=== PATIENT | female | born 1985 ===

== ENCOUNTER 2016-08-24 13:09 | Observation (INO) | payer MEDICARE, MEDICAID ==
--- NOTE | 2016-08-24 14:28 | ED PDOC ---
HPI: Abdomen Chief Complaint (Provider): Abdominal pain History Per: Patient History/Exam Limitations: no limitations Onset/Duration Of Symptoms: Hrs Outside of [place] travel?: No Current Symptoms Are (Timing): Still Present Severity: Moderate Pain Scale Rating Of: 7 Location Of Pain/Discomfort: Diffuse Quality Of Discomfort: Cramping, "Pain" Associated Symptoms: Nausea, Vomiting, Diarrhea. denies: Fever, Chills, Loss Of Appetite, Back Pain, Constipation, Urinary Symptoms Additional History Per: Patient <Katie Marcelouja - Last Filed: 08/24/16 16:57> <Tara Valencia - Last Filed: 08/24/16 19:12> Time Seen by Provider: 08/24/16 13:58 Chief Complaint (Nursing): Abdominal Pain Additional Complaint(s): 31 yo F with c/o abdominal cramping and N/V/D which started this morning. Pt states that today is day #2 of her menses. Reports abdominal cramping that is more severe than what she normally gets with her period. Has felt nauseous and had 2 episodes of clear liquid, nonbilious, nonbloody vomiting and 10-12 episodes of watery, nonbloody diarrhea. Denies fever, chills, recent travel or recent antibiotic use. (Jen Marcelo) Past Medical History Reviewed: Historical Data, Nursing Documentation, Vital Signs - Medical History PMH: No Chronic Diseases - Family History Family History: States: Unknown Family Hx <Katie Marcelouja - Last Filed: 08/24/16 16:57> <Tara Valencia - Last Filed: 08/24/16 19:12> Vital Signs: Last Vital Signs Temp 98.9 F 08/24/16 13:12 Pulse 91 H 08/24/16 19:10 Resp 19 08/24/16 19:10 BP 125/72 08/24/16 13:12 Pulse Ox 100 08/24/16 19:10 - Home Medications Home Medications: Ambulatory Orders Medication Instructions Recorded Ondansetron ODT [Zofran ODT] 4 mg PO Q8 PRN #12 odt 08/24/16 - Allergies Allergies/Adverse Reactions: Allergies Allergy/AdvReac Type Severity Reaction Status Date / Time No Known Allergies Allergy Verified 08/24/16 13:12 Review of Systems Constitutional: Negative for: Fever, Chills Cardiovascular: Negative for: Chest Pain, Palpitations Respiratory: Negative for: Cough, Shortness of Breath Gastrointestinal: Positive for: Nausea, Vomiting, Abdominal Pain, Diarrhea. Negative for: Constipation Genitourinary Female: Negative for: Dysuria, Frequency Neurological: Negative for: Headache, Dizziness <Jen Marcelo - Last Filed: 08/24/16 16:57> Physical Exam - Reviewed Nursing Documentation Reviewed: Yes Vital Signs Reviewed: Yes - Physical Exam Appears: Positive for: No Acute Distress Head Exam: Positive for: NORMAL INSPECTION Skin: Positive for: Normal Color, Warm, Dry Eye Exam: Positive for: Normal appearance, EOMI, PERRL ENT: Positive for: Normal ENT Inspection Cardiovascular/Chest: Positive for: Tachycardia. Negative for: Gallop, Murmur, Friction Rub Respiratory: Positive for: Normal Breath Sounds Gastrointestinal/Abdominal: Positive for: Bowel Sounds (present throughout), Soft, Tenderness (diffuse), Guarding. Negative for: Rebound Back: Negative for: L CVA Tenderness, R CVA Tenderness Extremity: Positive for: Capillary Refill (< 2 sec). 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 HR is 96. Abdomen exam is normal. Probable small left ovarian cysts. Pelvic ultrasound suggested for further evaluation. The appendix is not identified. No secondary signs of acute appendicitis appreciated. Additional incidental findings as above. (Tara Valencia) ED OBSERVATION <Jen Marcelo - Last Filed: 08/24/16 16:57> Date of observation admission: 08/24/16 Time of observation admission: 15:50 <Tara Valencia - Last Filed: 08/24/16 19:12> - Observation admission statement Patient is being placed in observation because:: Abdominal pain (Tara Valencia) - Goals of Observation Goals of observation are:: Evaluate for abdominal pain, CT abdomen. Reevaluate. (Tara Valencia) Disposition - Disposition Disposition Time: 16:59 Patient Signed Over To: Tara Valencia Handoff Comments: CT abd/pelvis pending <Jen Marcelo - Last Filed: 08/24/16 16:57> - Patient ED Disposition Is Patient to be Admitted: No Doctor Will See Patient In The: Office Counseled Patient/Family Regarding: Studies Performed, Diagnosis, Need For Followup - Disposition Disposition: Routine/Home Disposition Time: 19:10 <Tara Valencia - Last Filed: 08/24/16 19:12> - Clinical Impression Clinical Impression: Abdominal pain, Vomiting and diarrhea - Disposition Condition: GOOD
[2016-08-24] MEDS ORDERED: Sodium Chloride 0.9% 1,000 ML IV SCH (14:30)
[2016-08-24 14:52] LABS: BASO % 0.1 % (0.0-2.0); HEMATOCRIT 42.7 % (34.0-47.0); LYMPH # 0.3 K/uL (1.0-4.3); LYMPH % 1.3 % (20.0-40.0); MEAN CELL VOLUME 81.4 fl (81.0-99.0); MEAN CORPUSCULAR HEMOGLOBIN 25.3 pg (27.0-31.0); MEAN CORPUSCULAR HGB CONC 31.1 g/dL (33.0-37.0); MEAN PLATELET VOLUME 8.6 fl (7.2-11.7); MONO # 1.5 K/uL (0.0-0.8); MONO % 6.2 % (0.0-10.0); NEUT # 22.9 K/uL (1.8-7.0); NEUT % 92.4 % (50.0-75.0); PLATELET COUNT 283 K/uL (130-400); RED CELL DISTRIBUTION WIDTH 14.2 % (11.5-14.5); WHITE BLOOD COUNT 24.8 K/uL (4.8-10.8)
[2016-08-24 15:05] LABS: ALB/GLOB RATIO 1.2 (1.0-2.1); ALKALINE PHOSPHATASE 94 U/L (38-126); ALT/SGPT 29 U/L (9-52); AST/SGOT 42 U/L (14-36); BILIRUBIN,TOTAL 0.6 mg/dl (0.2-1.3); BLOOD UREA NITROGEN 13 mg/dl (7-17); CALCIUM 9.6 mg/dL (8.4-10.2); CARBON DIOXIDE 25 mmol/L (22-30); CHLORIDE 104 mmol/L (98-107); GFR AFRICAN-AMERICAN > 60; GLUCOSE,RANDOM 100 mg/dL (65-105); LIPASE 201 U/L (23-300); POTASSIUM 4.3 MMOL/L (3.6-5.0); SODIUM 144 mmol/l (132-148); TOTAL PROTEIN 8.2 G/DL (6.3-8.2)
[2016-08-24] MEDS ORDERED: Iohexol 240 (50 ml) PO ONE (15:26)
[2016-08-24] MEDS ORDERED: Iohexol 240 (50 ml) ONE (15:39)
[2016-08-24] MEDS ORDERED: Sodium Chloride 0.9% 1,000 ML IV STA (16:54)
[2016-08-24] MEDS ORDERED: Iohexol 300 100 ML IJ ONE (17:51)
[2016-08-24] MEDS ORDERED: Sodium Chloride 0.9% 50 ML IV ONE (17:51)
[2016-08-24 18:40] LABS: NEUTROPHIL 87 % (42-75); TOTAL CELLS COUNTED 100
[2016-08-24 18:41] LABS: LARGE PLATELETS PRESENT
--- NOTE | 2016-08-24 18:50 | CT ---
PROCEDURE: CT Abdomen and Pelvis with oral and IV contrast. HISTORY: abdominal pain v/d COMPARISON: None available TECHNIQUE: Contiguous axial images of the abdomen and pelvis. Oral and IV contrast was administered. Coronal and Sagittal reformats generated and reviewed. Contrast dose: 95 cc Omnipaque 300 Radiation dose: Total exam DLP = 604.59 MGy-cm. FINDINGS: LOWER THORAX: No visible consolidation, pleural effusion, or pneumothorax. LIVER: 4 mm right hepatic lobe hypodensity, too small to characterize ; statistically likely cyst or hemangioma. . GALLBLADDER AND BILE DUCTS: Unremarkable. PANCREAS: Unremarkable. SPLEEN: Unremarkable. ADRENALS: Unremarkable. KIDNEYS AND URETERS: The kidneys enhance symmetrically. No hydronephrosis or obstructing renal calculus. BLADDER: The urinary bladder appears unremarkable. REPRODUCTIVE: Uterus is present. Probable small left ovarian cysts. APPENDIX: The appendix is not identified. No secondary signs of acute appendicitis evident. BOWEL: The stomach is nondistended. The bowel loops appear within normal limits of caliber without evidence of intestinal obstruction. PERITONEUM: No significant free fluid. No definite free air. LYMPH NODES: Scattered sub cm mesenteric lymph nodes, nonspecific. VASCULATURE: No aortic aneurysm. BONES: No acute osseous abnormality is detected. OTHER FINDINGS: None. IMPRESSION: Probable small left ovarian cysts. Pelvic ultrasound suggested for further evaluation. The appendix is not identified. No secondary signs of acute appendicitis appreciated. Additional incidental findings as above.
[2016-08-24 19:11] VITALS: O2SAT 100
[2016-08-24 19:24] VITALS: BP 101/63; PULSE 96; RESP 17; TEMP 98.2
== END 2016-08-24 19:11 | disposition home or self-care (01) ==
LOC: H.ER 13:09 → H.EROBSV 15:42
PROVIDERS: ADMIT Emergency Medicine; ATTEND Emergency Medicine
DX: R10.84 Generalized abdominal pain (principal); R11.10 Vomiting, unspecified; R19.7 Diarrhea, unspecified
CPT/HCPCS: 74177; 80053; 81025; 83690; 85025; 96361; 96374; 96375; 99284; G0378; J1885; J2405; J7040; Q9966; Q9967

== ENCOUNTER 2017-02-15 10:48 | Emergency (ER) | payer MEDICARE, MEDICAID ==
[2017-02-15] MEDS ORDERED: Sodium Chloride 0.9% 1,000 ML IV STA (11:39)
--- NOTE | 2017-02-15 12:08 | ED PDOC ---
HPI: Abdomen Time Seen by Provider: 02/15/17 11:10 Chief Complaint (Nursing): Abdominal Pain Chief Complaint (Provider): Abdominal pain History Per: Patient History/Exam Limitations: no limitations Onset/Duration Of Symptoms: Hrs (0300) Outside of [place] travel?: No Current Symptoms Are (Timing): Still Present Severity: Mild Location Of Pain/Discomfort: RUQ Quality Of Discomfort: "Pain" Associated Symptoms: Fever (Subjective), Nausea, Diarrhea Exacerbating Factors: None Alleviating Factors: None Additional History Per: Patient Additional Complaint(s): 31 y/o female c/o abdominal pain, nausea, diarrhea, and subjective fever since 03:00 last night. Patient denies sick contact or recent travel. No symptoms. No medical problems. Abnormal Vaginal Bleeding: No Past Medical History Reviewed: Historical Data, Nursing Documentation, Vital Signs Vital Signs: Last Vital Signs Temp 97 F L 02/15/17 11:03 Pulse 99 H 02/15/17 11:03 Resp 18 02/15/17 11:03 BP 113/63 02/15/17 11:03 Pulse Ox 100 02/15/17 14:30 - Family History Family History: States: Unknown Family Hx - Home Medications Home Medications: Ambulatory Orders Medication Instructions Recorded Ondansetron ODT [Zofran ODT] 4 mg PO Q8 PRN #12 odt 08/24/16 Dicyclomine [Bentyl] 20 mg PO QID PRN #10 tab 02/15/17 Nitrofurantoin Macrocrystals 100 mg PO BID #14 cap 02/15/17 [Macrobid] Ondansetron ODT [Zofran ODT] 4 mg PO Q8H PRN #20 odt 02/15/17 - Allergies Allergies/Adverse Reactions: Allergies Allergy/AdvReac Type Severity Reaction Status Date / Time No Known Allergies Allergy Verified 02/15/17 11:03 Review of Systems ROS Statement: Except As Marked, All Systems Reviewed And Found Negative Constitutional: Positive for: Fever (Subjective) Gastrointestinal: Positive for: Nausea, Abdominal Pain, Diarrhea Genitourinary Female: Negative for: Dysuria, Hematuria, Vaginal Discharge, Vaginal Bleeding Physical Exam - Reviewed Nursing Documentation Reviewed: Yes Vital Signs Reviewed: Yes - Physical Exam Appears: Positive for: Well, Non-toxic, No Acute Distress Head Exam: Positive for: ATRAUMATIC, NORMAL INSPECTION, NORMOCEPHALIC Skin: Positive for: Normal Color, Warm, Dry Eye Exam: Positive for: Normal appearance Cardiovascular/Chest: Positive for: Regular Rate, Rhythm Respiratory: Positive for: Normal Breath Sounds. Negative for: Rales, Rhonchi, Wheezing Gastrointestinal/Abdominal: Positive for: Soft, Tenderness (Right upper quadrant ). Negative for: Guarding, Rebound, Other ((-) Hill's sign) Back: Positive for: Normal Inspection. Negative for: L CVA Tenderness, R CVA Tenderness Neurologic/Psych: Positive for: Alert, Oriented (x3) - Laboratory Results Result Diagrams: 02/15/17 12:30 02/15/17 11:55 - ECG O2 Sat by Pulse Oximetry: 100 (RA) Pulse Ox Interpretation: Normal Medical Decision Making Medical Decision Making: Initial Impression: * Abdominal pain, nausea, diarrhea, and subjective fever since 03:00 last night. Initial Plan: * Blood work up * Morphine * IV fluids * Zofran * UA * US Abd Time: 11:45. Cholecystitis vs Cholelithiasis vs Gastroenteritis Time: 1348 --US ABD FINDINGS: LIVER: Measures 14.1 cm in length. Normal echogenicity of the liver parenchyma. No mass. No intrahepatic bile duct dilatation. GALLBLADDER: Unremarkable. No gallstones. COMMON BILE DUCT: Measures 4.3 mm. No stones. No dilatation. PANCREAS: Unremarkable as visualized. No mass. No ductal dilatation. RIGHT KIDNEY: Measures 10.4 x 5.5 x 3.9 cm in length. Normal echogenicity. No calculus, mass, or hydronephrosis. AORTA: No aneurysmal dilatation. IVC: Unremarkable. OTHER FINDINGS: None . IMPRESSION: Unremarkable right upper quadrant abdomen ultrasound. __ Scribe Attestation Documented by Carmela hurtado acting as a scribe for Sravani Carver MD. Provider Attestation: All medical record entries made by the Scribe were at my direction and personally dictated by me. I have reviewed the chart and agree that the record accurately reflects my personal performance of the history, physical exam, medical decision making, and the department course for this patient. I have also personally directed, reviewed, and agree with the discharge instructions and disposition. Disposition - Clinical Impression Clinical Impression: Gastroenteritis, UTI (urinary tract infection) - Patient ED Disposition Is Patient to be Admitted: No Counseled Patient/Family Regarding: Studies Performed, Diagnosis, Need For Followup, Rx Given - Disposition Referrals: Basil Poole MD [Family Provider] - Disposition: Routine/Home Disposition Time: 14:25 Condition: STABLE Prescriptions: Dicyclomine [Bentyl] 20 mg PO QID PRN #10 tab PRN Reason: Pain, Moderate (4-7) Nitrofurantoin Macrocrystals [Macrobid] 100 mg PO BID #14 cap Ondansetron ODT [Zofran ODT] 4 mg PO Q8H PRN #20 odt PRN Reason: Nausea/Vomiting Instructions: Urinary Tract Infection in Women (ED), Gastroenteritis (ED) Forms: [employer] (Mohawk)
[2017-02-15 12:53] LABS: BASO % 0.4 % (0.0-2.0); EOS # 0.1 K/uL (0.0-0.7); EOS % 0.5 % (0.0-4.0); HEMATOCRIT 41.5 % (34.0-47.0); LYMPH # 1.2 K/uL (1.0-4.3); LYMPH % 10.5 % (20.0-40.0); MEAN CELL VOLUME 81.7 fl (81.0-99.0); MEAN CORPUSCULAR HEMOGLOBIN 25.8 pg (27.0-31.0); MEAN CORPUSCULAR HGB CONC 31.6 g/dL (33.0-37.0); MEAN PLATELET VOLUME 8.9 fl (7.2-11.7); MONO # 0.7 K/uL (0.0-0.8); MONO % 5.9 % (0.0-10.0); NEUT # 9.2 K/uL (1.8-7.0); NEUT % 82.7 % (50.0-75.0); RED CELL DISTRIBUTION WIDTH 13.9 % (11.5-14.5); WHITE BLOOD COUNT 11.1 K/uL (4.8-10.8)
[2017-02-15 13:04] LABS: RBC URINE 8 /hpf (0-3); URINE BACTERIA OCC (<OCC); URINE BILIRUBIN NEGATIVE (NEGATIVE); URINE BLOOD SMALL (NEGATIVE); URINE COLOR YELLOW (YELLOW); URINE GLUCOSE (UA) NEG (Normal); URINE KETONE 20 mg/dL (NEGATIVE); URINE LEUKOCYTE ESTERASE TRACE Leu/uL (Negative); URINE PROTEIN NEGATIVE (NEGATIVE)
[2017-02-15 13:05] LABS: ALB/GLOB RATIO 1.4 (1.0-2.1); ALKALINE PHOSPHATASE 64 U/L (38-126); ALT/SGPT 25 U/L (9-52); AST/SGOT 25 U/L (14-36); BILIRUBIN,TOTAL 0.7 mg/dl (0.2-1.3); BLOOD UREA NITROGEN 16 mg/dl (7-17); CALCIUM 9.6 mg/dL (8.4-10.2); CARBON DIOXIDE 24 mmol/L (22-30); CHLORIDE 103 mmol/L (98-107); GFR AFRICAN-AMERICAN > 60; GLUCOSE,RANDOM 87 mg/dL (65-105); LIPASE 74 U/L (23-300); POTASSIUM 4.2 MMOL/L (3.6-5.0); SODIUM 140 mmol/l (132-148); TOTAL PROTEIN 7.9 G/DL (6.3-8.2)
[2017-02-15 13:07] LABS: WBC URINE 17 /hpf (0-5)
--- NOTE | 2017-02-15 13:49 | US ---
HISTORY: RUQ pain, v/d COMPARISON: None. TECHNIQUE: Sonographic evaluation of the right upper quadrant of the abdomen. FINDINGS: LIVER: Measures 14.1 cm in length. Normal echogenicity of the liver parenchyma. No mass. No intrahepatic bile duct dilatation. GALLBLADDER: Unremarkable. No gallstones. COMMON BILE DUCT: Measures 4.3 mm. No stones. No dilatation. PANCREAS: Unremarkable as visualized. No mass. No ductal dilatation. RIGHT KIDNEY: Measures 10.4 x 5.5 x 3.9 cm in length. Normal echogenicity. No calculus, mass, or hydronephrosis. AORTA: No aneurysmal dilatation. IVC: Unremarkable. OTHER FINDINGS: None . IMPRESSION: Unremarkable right upper quadrant abdomen ultrasound.
[2017-02-15 14:54] VITALS: BP 120/68; PULSE 77; RESP 16; TEMP 97.1; O2SAT 99
== END 2017-02-15 14:54 | disposition home or self-care (01) ==
LOC: H.ER 10:48
DX: K52.9 Noninfective gastroenteritis and colitis, unspecified (principal); N39.0 Urinary tract infection, site not specified
CPT/HCPCS: 76705; 80053; 81003; 81025; 83690; 85025; 96374; 96375; 99283; J2270; J2405; J7040

== ENCOUNTER 2018-05-08 17:00 | Emergency (ER) | payer MEDICARE, MEDICAID ==
[2018-05-08 17:24] VITALS: BP 118/78; PULSE 99; RESP 16; TEMP 97.9; O2SAT 100
[2018-05-08] MEDS ORDERED: Iohexol 240 (50 ml) PO ONE (17:40)
[2018-05-08] MEDS ORDERED: Iohexol 240 (50 ml) ONE (18:13)
--- NOTE | 2018-05-08 18:15 | ED PDOC ---
HPI: Abdomen Time Seen by Provider: 05/08/18 17:33 Chief Complaint (Nursing): Abdominal Pain Chief Complaint (Provider): Abdominal Pain History Per: Patient History/Exam Limitations: no limitations Onset/Duration Of Symptoms: Days (x4) Current Symptoms Are (Timing): Intermittent Episodes Additional Complaint(s): 33 year old female presents to the ED complaining of intermittent abdominal pain for 4 days. Patient reports she was seen at [place] [facility] and discharged after workup including bloodwork was negative. Patient continues to have abdominal pain associated with nausea and vomiting but no diarrhea. Pain is in the lower abdomen and also in the epigastric area. Denies urinary symptoms and fever. PMD: Basil [place] Past Medical History Reviewed: Historical Data, Nursing Documentation, Vital Signs Vital Signs: Last Vital Signs Temp 97.9 F 05/08/18 17:23 Pulse 99 H 05/08/18 17:23 Resp 16 05/08/18 17:23 BP 118/78 05/08/18 17:23 Pulse Ox 100 05/08/18 17:23 - Medical History PMH: Gastritis - Surgical History Surgical History: No Surg Hx - Family History Family History: States: Unknown Family Hx - Social History Current smoker - smoking cessation education provided: No Alcohol: None Drugs: Denies - Home Medications Home Medications: Ambulatory Orders Medication Instructions Recorded No Known Home Med 05/04/18 - Allergies Allergies/Adverse Reactions: Allergies Allergy/AdvReac Type Severity Reaction Status Date / Time No Known Allergies Allergy Verified 05/04/18 21:45 Review of Systems ROS Statement: Except As Marked, All Systems Reviewed And Found Negative Constitutional: Negative for: Fever Gastrointestinal: Positive for: Nausea, Vomiting, Abdominal Pain (lower abdomen and epigastric area). Negative for: Diarrhea Genitourinary Female: Negative for: Dysuria, Hematuria Physical Exam - Reviewed Nursing Documentation Reviewed: Yes Vital Signs Reviewed: Yes - Physical Exam Appears: Positive for: Non-toxic, No Acute Distress Head Exam: Positive for: ATRAUMATIC, NORMOCEPHALIC Skin: Positive for: Normal Color, Warm, Dry Eye Exam: Positive for: Normal appearance Neck: Positive for: Normal, Painless ROM Cardiovascular/Chest: Positive for: Regular Rate, Rhythm Respiratory: Positive for: Normal Breath Sounds Gastrointestinal/Abdominal: Positive for: Tenderness (of the lower quadrants and suprapubic area as well as epigastric area. ). Negative for: Guarding, Rebound Extremity: Positive for: Normal ROM Neurologic/Psych: Positive for: Alert, Oriented. Negative for: Motor/Sensory Deficits - Laboratory Results Result Diagrams: 05/08/18 17:55 05/08/18 17:55 - ECG O2 Sat by Pulse Oximetry: 100 (RA) Pulse Ox Interpretation: Normal Medical Decision Making Medical Decision Making: Initial Plan: --CT abd/pelvis --CMP --Liapse stat --ED urine --ED urine dipstick --CBC --Iohexol 50mL PO --Toradol 30mg IV Scribe Attestation: Documented by Darius Rosen acting as a scribe for Maurice Long MD. Provider Scribe Attestation: All medical record entries made by the Scribe were at my direction and personally dictated by me. I have reviewed the chart and agree that the record accurately reflects my personal performance of the history, physical exam, medical decision making, and the department course for this patient. I have also personally directed, reviewed, and agree with the discharge instructions and disposition. Disposition - Clinical Impression Clinical Impression: Abdominal pain - Patient ED Disposition Is Patient to be Admitted: Transfer of Care - Disposition Disposition: Transfer of Care Disposition Time: 19:00 Condition: FAIR Forms: [employer] (Korean) Patient Signed Over To: Se Schilling
[2018-05-08 18:27] LABS: BASO # 0.1 K/uL (0.0-0.2); BASO % 1.2 % (0.0-2.0); EOS # 0.2 K/uL (0.0-0.7); EOS % 2.9 % (0.0-4.0); HEMOGLOBIN 11.4 g/dL (12.0-16.0); LYMPH # 1.9 K/uL (1.0-4.3); LYMPH % 24.7 % (20.0-40.0); MEAN CELL VOLUME 80.8 fl (81.0-99.0); MEAN CORPUSCULAR HEMOGLOBIN 25.6 pg (27.0-31.0); MEAN CORPUSCULAR HGB CONC 31.7 g/dL (33.0-37.0); MEAN PLATELET VOLUME 8.9 fl (7.2-11.7); MONO # 0.6 K/uL (0.0-0.8); MONO % 7.2 % (0.0-10.0); NEUT # 4.9 K/uL (1.8-7.0); NRBC % 0.1 % (0.0-0.0); RBC 4.45 Mil/uL (3.80-5.20); RED CELL DISTRIBUTION WIDTH 15.6 % (11.5-14.5); WHITE BLOOD COUNT 7.6 K/uL (4.8-10.8)
[2018-05-08 18:47] LABS: ALB/GLOB RATIO 1.1 (1.0-2.1); ALBUMIN 4.4 g/dL (3.5-5.0); ALT/SGPT 22 U/L (9-52); AST/SGOT 27 U/L (14-36); BLOOD UREA NITROGEN 13 mg/dl (7-17); CALCIUM 9.9 mg/dL (8.4-10.2); GFR NON-AFRICAN AMERICAN > 60; LIPASE 111 U/L (23-300)
[2018-05-08] MEDS ORDERED: Alum-Mag Hydrox-Simethicone Susp (30 mL) PO STA (20:13)
--- NOTE | 2018-05-08 20:17 | ED PDOC ---
- Laboratory Results Result Diagrams: 05/08/18 17:55 05/08/18 17:55 - ECG O2 Sat by Pulse Oximetry: 100 (RA) Medical Decision Making Medical Decision Makin:00 Patient endorsed to this provider from Dr. Long. Pending CT scan. 19:45 CT abd/pelvis FINDINGS: LUNG BASES: The lung bases appear clear. No pleural effusions are seen. LIVER: Unremarkable. GALLBLADDER AND BILE DUCTS: The gallbladder appears within normal limits. No radioopaque gallstones are seen. No biliary ductal dilatation is evident. PANCREAS: Unremarkable. SPLEEN: Unremarkable. ADRENAL GLANDS: Unremarkable. KIDNEYS, URETERS, AND BLADDER: The kidneys appear within normal limits. There is no hydronephrosis or hydroureter. No urinary calculi are seen. STOMACH AND BOWEL: Gaseous distention of the transverse colon, but no dilated loops of bowel. No evidence of bowel obstruction. No evidence suggesting enteritis or colitis. APPENDIX: Appendix is not clearly visualized. No definite pericecal inflammation. PERITONEUM: No free fluid. No free air. LYMPH NODES: No lymphadenopathy is evident. VASCULATURE: No evidence of abdominal aortic aneurysm. BONES: No aggressive appearing osseous lesion. No acute osseous pathology evident. IMPRESSION: Gaseous distention of the transverse colon. No additional acute intra-abdominal abnormality. 20:56 Patient reports improvement in symptoms. She states she has a GI specialist with whom she will follow up with as well as her PMD, Dr. Poole. Patient is stable for discharge with diagnosis of abdominal pain. Provider discussed possibility of irritable bowel syndrome given benign findings on CT and lab work. Scribe Attestation: Documented by Darius Rosen acting as a scribe for Se Schilling MD. Provider Scribe Attestation: All medical record entries made by the Scribe were at my direction and personally dictated by me. I have reviewed the chart and agree that the record accurately reflects my personal performance of the history, physical exam, medical decision making, and the department course for this patient. I have also personally directed, reviewed, and agree with the discharge instructions and disposition. Disposition - Clinical Impression Clinical Impression: Abdominal pain - POA Present On Arrival: None - Disposition Disposition: Routine/Home Disposition Time: 21:00 Condition: IMPROVED Prescriptions: Dicyclomine [Bentyl] 20 mg PO Q12 PRN #20 tab PRN Reason: abdominal pain Instructions: Stomach Ache and Stomach Upset Forms: [employer] (Sinhala)
--- NOTE | 2018-05-09 11:12 | CT ---
Date of service: 05/08/2018 PROCEDURE: CT Abdomen and Pelvis without intravenous contrast HISTORY: Abdominal pain COMPARISON: 08/24/2016 CT abdomen and pelvis. 02/15/2017 abdominal ultrasound TECHNIQUE: Unenhanced. Neither IV nor oral contrast administered Radiation dose: Total exam DLP = 288.35 mGy-cm. This CT exam was performed using one or more of the following dose reduction techniques: Automated exposure control, adjustment of the mA and/or kV according to patient size, and/or use of iterative reconstruction technique. FINDINGS: LOWER THORAX: Unremarkable. LIVER: Unremarkable. No gross lesion or ductal dilatation. GALLBLADDER AND BILE DUCTS: Unremarkable. PANCREAS: Unremarkable. No gross lesion or ductal dilatation. SPLEEN: Unremarkable. ADRENALS: Unremarkable. No mass. KIDNEYS AND URETERS: Unremarkable. No hydronephrosis. No solid mass. VASCULATURE: Unremarkable. No aortic aneurysm. No atherosclerotic calcification or mural plaque present. BOWEL: . May 09, 2018 Constipation without fecal impaction or obstruction. APPENDIX: Unremarkable. Normal appendix. PERITONEUM: Unremarkable. No free fluid. No free air. LYMPH NODES: Unremarkable. No enlarged lymph nodes. BLADDER: Unremarkable. REPRODUCTIVE: Unremarkable. BONES: No acute fracture. OTHER FINDINGS: None. IMPRESSION: Unremarkable non contrast enhanced CT of the abdomen and pelvis. Concordant results (preliminary interpretation) provided by [employer]. Procedure Completed: 18:59. Preliminary Report: Dictated and Authenticated: 19:44 Final Interpretation: 11:06
== END 2018-05-08 20:55 | disposition home or self-care (01) ==
LOC: H.ER 17:00
DX: R10.9 Unspecified abdominal pain (principal)
CPT/HCPCS: 74176; 80053; 81025; 83690; 85025; 96374; 99284; J1885